=== PATIENT | male | born 1950 | race Caucasian/White ===

== ENCOUNTER 2019-10-31 14:54 | Emergency (ER) | payer OTHER, SELFPAY ==
[2019-10-31] VITALS (7 sets, daily range): BP systolic 120–165; BP diastolic 73–97; PULSE 76–112; RESP 16–18; TEMP 37.2; O2SAT 96–98; BMI 28.3
--- NOTE | 2019-10-31 15:40 | ED_ITS ---
Documented by User: EDEN Bland 11/01/19 07:03 HPI - General Adult General: Chief complaint: Abdominal Pain Stated complaint: possible gi bleed/sent by [facility] Time Seen by Provider: 10/31/19 15:31 Source: patient Mode of arrival: ambulatory Limitations: no limitations History of Present Illness: HPI narrative: Patient is a very nice 69-year-old male with a history of liver carcinoma, HTN, DM here for complaints of feeling weak, fatigued, having no energy, chronic dizziness, chronic stomach pains , and black stools. In addition patient tells me he had a syncopal episode approximately a week ago. He tells me he has a well-controlled diabetic. States he has underwent treatment for the liver carcinoma and was told last year he was in remission. Patient tells me his chronic abdominal pain has been slightly worse over the past week or so. He tells me the black stools have been present over the past year. He states last year he had a colonoscopy which revealed one polyp but was otherwise normal. He has no history of GI bleeds. He is not anticoagulated. Onset (ago): week(s) Associated symptoms: Reports nausea and syncope; Deny chest pain, dyspnea, headache(s), rash, palpitations or vomiting Review of Systems Const: Reports: change in appetite (decreased appetite ) and fatigue; Denies: fever(s), chills, body aches or change in weight Eyes: Denies: change in vision, blurry vision, photophobia or seeing flashes ENMT: Denies: odynophagia Card: Reports: lightheadedness, syncope and pre-syncope; Denies: chest pain, palpitations, irregular heart rhythm, edema or swelling of feet/ankles Resp: Denies: dyspnea, productive cough, non-productive cough, change in phlegm color, hemoptysis or chest congestion GI: Reports: abdominal pain, nausea and melena; Denies: vomiting, hematemesis, diarrhea, constipation, change in bowel habits, rectal pain, hematochezia or white/light colored stool : Denies: flank pain, difficulty urinating, dysuria, urinary frequency, urinary urgency or urinary hesitancy Musc: Denies: neck pain or back pain Skin/Breast: Denies: rash Neuro: Reports: dizziness; Denies: headache(s), numbness in extremities, weakness in extremities or sensory changes PFS ED PFSH: Social History Smoking and tobacco status: never smoked Alcohol intake: never Marital status: Single Physical Exam Const: COMMON NORMALS: no acute distress, average body habitus, patient oriented x3, no limitations, healthy appearing, alert and well nourished HENMT: COMMON NORMALS: normocephalic and atraumatic HEAD & SCALP: normocephalic and atraumatic Resp: COMMON NORMALS: normal respiratory effort and clear to auscultation bilaterally AUSCULTATION: clear to auscultation bilaterally Cardio: COMMON NORMALS: regular rate and regular rhythm RATE: regular rate RHYTHM: regular rhythm GI: COMMON NORMALS: Normal to inspection, nondistended, normoactive bowel sounds present, Soft to palpation, No hepatosplenomegaly present and no masses PALPATION: Yes Soft to palpation, Yes Tenderness to palpation present (GI) (epigastric ) Details: RUQ and Yes No hepatosplenomegaly present RECTAL EXAM: Yes heme positive stool : COMMON NORMALS: Yes no CVA tenderness BLADDER/KIDNEY EXAM: Yes no CVA tenderness Back/Pelvis: COMMON NORMALS: no CVA tenderness Extremity: COMMON NORMALS: normal to inspection, capillary refill normal, no clubbing, cyanosis or edema, no calf tenderness and no pedal edema Neuro: COMMON NORMALS: patient oriented x3 SENSORIUM/ORIENTATION: Yes alert Skin: COMMON NORMALS: no rashes or lesions noted GENERAL SKIN EXAM: no rashes or lesions noted Course Vital Signs: Vital signs: Vital Signs Temperature 98.9 F 10/31/19 14:59 Pulse Rate 104 H 10/31/19 18:23 Respiratory Rate 16 10/31/19 18:23 Blood Pressure 146/90 10/31/19 18:23 Pulse Oximetry 97 10/31/19 18:23 MDM - General Adult Lab Data: Labs: Lab Results 10/31/19 10/31/19 10/31/19 Range/Units 15:50 15:50 15:50 WBC 8.3 (4.0-10.0) 10^3/ uL RBC 5.51 H (4.1-5.3) 10^6/u L Hgb 15.5 (11.7-16.6) g/dL Hct 48.5 (42.0-52.0) % MCV 88.0 (80-94) fL MCH 28.1 (28.0-34.0) pg MCHC 32.0 (30.0-36.0) g/dL RDW 12.3 (12.1-15.1) % Plt Count 227 (130-400) 10^3/c mm MPV 10.4 (7.4-10.4) fL Neut % (Auto) 57.1 % Lymph % (Auto) 30.3 % [place] % (Auto) 10.8 % Eos % (Auto) 1.1 % Baso % (Auto) 0.5 % Neut # (Auto) 4.7 (1.8-7.7) 10^3/u L Lymph # (Auto) 2.5 (0.8-4.8) 10^3/u L [place] # (Auto) 0.9 (0.2-0.9) 10^3/u L Eos # (Auto) 0.1 (0.0-0.8) 10^3/u L Baso # (Auto) 0.0 (0.0-0.1) 10^3/u L Nucleated RBC % (a uto) 0 % Nucleated RBCs # 0.0 /100WBC PT 13.40 H (10.5-13.3) SECO NDS INR 1.00 (0.8-1.2) Sodium 134 L (136-145) mmol/L Potassium 3.8 (3.5-5.1) mmol/L Chloride 101 (98-107) mmol/L Carbon Dioxide 19 L (22-29) mmol/L Anion Gap 17.8 (5-19) BUN 12 (8-23) mg/dL Creatinine 1.2 (0.7-1.2) mg/dL GFR Calculation 60.2 L (90-130) mL/min Glucose 288 H (65-115) mg/dL Calculated Osmolal ity 285 (285-295) mOsm/k g Lactate (0.5-2.2) mmol/L Calcium 9.7 (8.5-10.5) mg/dL Total Bilirubin 0.5 (0.15-1.2) mg/dL AST 38 (0-40) U/L ALT 43 H (0-41) U/L Alkaline Phosphata se 142 H (40-130) IU/L Total Protein 8.1 (6.6-8.7) g/dL Albumin 4.6 (3.5-5.2) g/dL Globulin 3.5 (1.3-4.6) g/dL Lipase 45 (13-60) U/L Urine Color (Yellow) Urine Appearance (CLEAR) Urine pH (5-7) Ur Specific Gravit y (1.005-1.030) Urine Protein (Negative) Urine Glucose (UA) (Normal) Urine Ketones (Negative) Urine Blood (Negative) Urine Nitrate (Negative) Urine Bilirubin (NEGATIVE) Urine Urobilinogen (Negative) mg/dL Ur Leukocyte Mirna ase (Negative) 10/31/19 10/31/19 Range/Units 15:50 17:20 WBC (4.0-10.0) 10^3/ uL RBC (4.1-5.3) 10^6/u L Hgb (11.7-16.6) g/dL Hct (42.0-52.0) % MCV (80-94) fL MCH (28.0-34.0) pg MCHC (30.0-36.0) g/dL RDW (12.1-15.1) % Plt Count (130-400) 10^3/c mm MPV (7.4-10.4) fL Neut % (Auto) % Lymph % (Auto) % [place] % (Auto) % Eos % (Auto) % Baso % (Auto) % Neut # (Auto) (1.8-7.7) 10^3/u L Lymph # (Auto) (0.8-4.8) 10^3/u L [place] # (Auto) (0.2-0.9) 10^3/u L Eos # (Auto) (0.0-0.8) 10^3/u L Baso # (Auto) (0.0-0.1) 10^3/u L Nucleated RBC % (a uto) % Nucleated RBCs # /100WBC PT (10.5-13.3) SECO NDS INR (0.8-1.2) Sodium (136-145) mmol/L Potassium (3.5-5.1) mmol/L Chloride (98-107) mmol/L Carbon Dioxide (22-29) mmol/L Anion Gap (5-19) BUN (8-23) mg/dL Creatinine (0.7-1.2) mg/dL GFR Calculation (90-130) mL/min Glucose (65-115) mg/dL Calculated Osmolal ity (285-295) mOsm/k g Lactate 1.6 (0.5-2.2) mmol/L Calcium (8.5-10.5) mg/dL Total Bilirubin (0.15-1.2) mg/dL AST (0-40) U/L ALT (0-41) U/L Alkaline Phosphata se (40-130) IU/L Total Protein (6.6-8.7) g/dL Albumin (3.5-5.2) g/dL Globulin (1.3-4.6) g/dL Lipase (13-60) U/L Urine Color Yellow (Yellow) Urine Appearance Clear (CLEAR) Urine pH 7 (5-7) Ur Specific Gravit y 1.005 (1.005-1.030) Urine Protein Neg (Negative) Urine Glucose (UA) Norm (Normal) Urine Ketones Negative (Negative) Urine Blood Neg (Negative) Urine Nitrate Negative (Negative) Urine Bilirubin Neg (NEGATIVE) Urine Urobilinogen Norm (Negative) mg/dL Ur Leukocyte Mirna ase Negative (Negative) Imaging Data^: CXR: Radiologist's impression: [place] [address] XRay Report Signed Patient: Jus Hurtado Unit #: [id number] : 1950 Age/Sex: 69 / M ADM Date: 10/31/19 Loc: ER Room/Bed: Attending Dr: Ordering Provider/Ordering MD: Margot Pantoja Date of Service: 10/31/19 Procedure(s): XR chest 1V portable [id number] Accession Number(s): [id number] Report Number: [id number] PROCEDURE INFORMATION: Exam: XR Chest, 1 View Exam date and time: 10/31/2019 4:14 PM Age: 69 years old Clinical indication: Other: Weakness, fatigue; Additional info: Weakness/fatigue TECHNIQUE: Imaging protocol: XR of the chest Views: 1 view. COMPARISON: No relevant prior studies available. FINDINGS: Lungs: Unremarkable. No consolidation. Pleural space: Unremarkable. No pleural effusion. No pneumothorax. Heart/Mediastinum: Unremarkable. No cardiomegaly. Bones/joints: Unremarkable. XR/XR chest 1V portable [id number] IMPRESSION: No acute findings. Dictated By: Abdiaziz Gabriel Signed By: Abdiaziz Gabriel Signed Date/Time: 10/31/191628 DD/ 28 EKG Data^: EKG 1: Computer generated interpretation: Chest X-Ray 10/31/19 15:41 IMPRESSION: No acute findings. Abdomen/Pelvis CT 10/31/19 16:24 IMPRESSION: 1. Cirrhosis 2. Postsurgical changes in the liver, comparison with prior examinations is suggested to evaluate stability and exclude recurrence. 3. Probable focal fatty change in the right lobe of the liver. 4. Mild biliary tract dilatation in the left lobe of the liver of uncertain significance. Correlation with clinical and laboratory findings is suggested. Radiation Dose CTDIVOL = (mGy): DLP = 849.76 (mGy-cm) Discharge Plan Discharge Patient Disposition: Home, Self-Care Clinical Impression: History of liver cancer Cirrhosis of liver Qualifiers: Hepatic cirrhosis type: unspecified hepatic cirrhosis Ascites presence: without ascites Qualified Code(s): K74.60 - Unspecified cirrhosis of liver Fatigue Qualifiers: Fatigue type: unspecified Qualified Code(s): R53.83 - Other fatigue Condition: Stable Discharge Orders: Discharge Order (Routine); Ordered 10/31/19 Ordered By: Femi Guzman Referrals: Uriel Hall DO [Primary Care Provider] - Discharge Diet: Advance as tolerated Discharge Activity: Increase activity as tolerated Activity Restrictions/Additional Instructions: Follow-up with your GI doctor in the next 7 to 10 days for reevaluation. Continue taking all home medications as prescribed. Return to the ER or your medical provider if condition worsens. Please read and understand discharge instructions. If any questions, please ask. Discharge Date/Time: 10/31/19 18:34 Sign Out Sign Out Data: Patient Sign Out occurred on 10/31/19 at 17:11. Patient's care was discussed, and care was transferred from to EDEN Wheeler. Coding Level of Care Code ED Medical Anthropologist for Chg Fwd Exam Comprehensive Documented by User: EDEN Wheeler 11/01/19 01:45 HPI - General Adult General: Chief complaint: Abdominal Pain Stated complaint: possible gi bleed/[facility] Time Seen by Provider: 10/31/19 15:31 PFSH ED PFSH: Social History Smoking and tobacco status: never smoked Alcohol intake: never Marital status: Single Procedures Stool Hemoccult Procedural Steps Taken: stool placed in appropriate test area, developer placed on stool and control areas and controls appropriately positive and negative Hemoccult result: positive Additional Comments: Margot Pantoja the physicians [facility] faculty assistant who did the initial work-up the patient before handing him over to me stated she performed a digital rectal exam and stool Hemoccult test. She stated it was positive for blood. Course Vital Signs: Vital signs: Vital Signs Temperature 98.9 F 10/31/19 14:59 Pulse Rate 104 H 10/31/19 18:23 Respiratory Rate 16 10/31/19 18:23 Blood Pressure 146/90 10/31/19 18:23 Pulse Oximetry 97 10/31/19 18:23 MDM - General Adult MDM Narrative: Medical decision making narrative: Patient is a very nice 69-year-old male with a history of liver carcinoma, HTN, DM here for complaints of stomach pains and fatigue. Patient recently had an MRI in July to evaluate his hepatocellular carcinoma and no disease progression seen. Patient also had a colonoscopy a year ago with 1 polyp seen and no other acute findings. Patient also sees GI specialist. Patient says symptoms started after liver cancer treatment. Patient's stool Hemoccult test was positive. CBC was unremarkable, CMP and UA were unremarkable. Lipase is 45 and lactate was 1.6. EKG was also p erformed and showed sinus tachycardia with no ST segment elevation or depression seen. Chest x-ray showed no acute findings. CT of the abdomen showed cirrhosis and fatty liver. No acute findings. Patient was discharged and told to contact GI specialist to set up an appointment for further evaluation of symptoms. Patient understood and agreed with plan. Lab Data: Attestation: I reviewed the patient's lab results. Labs: Lab Results 10/31/19 10/31/19 10/31/19 Range/Units 15:50 15:50 15:50 WBC 8.3 (4.0-10.0) 10^3/ uL RBC 5.51 H (4.1-5.3) 10^6/u L Hgb 15.5 (11.7-16.6) g/dL Hct 48.5 (42.0-52.0) % MCV 88.0 (80-94) fL MCH 28.1 (28.0-34.0) pg MCHC 32.0 (30.0-36.0) g/dL RDW 12.3 (12.1-15.1) % Plt Count 227 (130-400) 10^3/c mm MPV 10.4 (7.4-10.4) fL Neut % (Auto) 57.1 % Lymph % (Auto) 30.3 % [place] % (Auto) 10.8 % Eos % (Auto) 1.1 % Baso % (Auto) 0.5 % Neut # (Auto) 4.7 (1.8-7.7) 10^3/u L Lymph # (Auto) 2.5 (0.8-4.8) 10^3/u L [place] # (Auto) 0.9 (0.2-0.9) 10^3/u L Eos # (Auto) 0.1 (0.0-0.8) 10^3/u L Baso # (Auto) 0.0 (0.0-0.1) 10^3/u L Nucleated RBC % (a uto) 0 % Nucleated RBCs # 0.0 /100WBC PT 13.40 H (10.5-13.3) SECO NDS INR 1.00 (0.8-1.2) Sodium 134 L (136-145) mmol/L Potassium 3.8 (3.5-5.1) mmol/L Chloride 101 (98-107) mmol/L Carbon Dioxide 19 L (22-29) mmol/L Anion Gap 17.8 (5-19) BUN 12 (8-23) mg/dL Creatinine 1.2 (0.7-1.2) mg/dL GFR Calculation 60.2 L (90-130) mL/min Glucose 288 H (65-115) mg/dL Calculated Osmolal ity 285 (285-295) mOsm/k g Lactate (0.5-2.2) mmol/L Calcium 9.7 (8.5-10.5) mg/dL Total Bilirubin 0.5 (0.15-1.2) mg/dL AST 38 (0-40) U/L ALT 43 H (0-41) U/L Alkaline Phosphata se 142 H (40-130) IU/L Total Protein 8.1 (6.6-8.7) g/dL Albumin 4.6 (3.5-5.2) g/dL Globulin 3.5 (1.3-4.6) g/dL Lipase 45 (13-60) U/L Urine Color (Yellow) Urine Appearance (CLEAR) Urine pH (5-7) Ur Specific Gravit y (1.005-1.030) Urine Protein (Negative) Urine Glucose (UA) (Normal) Urine Ketones (Negative) Urine Blood (Negative) Urine Nitrate (Negative) Urine Bilirubin (NEGATIVE) Urine Urobilinogen (Negative) mg/dL Ur Leukocyte Mirna ase (Negative) 10/31/19 10/31/19 Range/Units 15:50 17:20 WBC (4.0-10.0) 10^3/ uL RBC (4.1-5.3) 10^6/u L Hgb (11.7-16.6) g/dL Hct (42.0-52.0) % MCV (80-94) fL MCH (28.0-34.0) pg MCHC (30.0-36.0) g/dL RDW (12.1-15.1) % Plt Count (130-400) 10^3/c mm MPV (7.4-10.4) fL Neut % (Auto) % Lymph % (Auto) % [place] % (Auto) % Eos % (Auto) % Baso % (Auto) % Neut # (Auto) (1.8-7.7) 10^3/u L Lymph # (Auto) (0.8-4.8) 10^3/u L [place] # (Auto) (0.2-0.9) 10^3/u L Eos # (Auto) (0.0-0.8) 10^3/u L Baso # (Auto) (0.0-0.1) 10^3/u L Nucleated RBC % (a uto) % Nucleated RBCs # /100WBC PT (10.5-13.3) SECO NDS INR (0.8-1.2) Sodium (136-145) mmol/L Potassium (3.5-5.1) mmol/L Chloride (98-107) mmol/L Carbon Dioxide (22-29) mmol/L Anion Gap (5-19) BUN (8-23) mg/dL Creatinine (0.7-1.2) mg/dL GFR Calculation (90-130) mL/min Glucose (65-115) mg/dL Calculated Osmolal ity (285-295) mOsm/k g Lactate 1.6 (0.5-2.2) mmol/L Calcium (8.5-10.5) mg/dL Total Bilirubin (0.15-1.2) mg/dL AST (0-40) U/L ALT (0-41) U/L Alkaline Phosphata se (40-130) IU/L Total Protein (6.6-8.7) g/dL Albumin (3.5-5.2) g/dL Globulin (1.3-4.6) g/dL Lipase (13-60) U/L Urine Color Yellow (Yellow) Urine Appearance Clear (CLEAR) Urine pH 7 (5-7) Ur Specific Gravit y 1.005 (1.005-1.030) Urine Protein Neg (Negative) Urine Glucose (UA) Norm (Normal) Urine Ketones Negative (Negative) Urine Blood Neg (Negative) Urine Nitrate Negative (Negative) Urine Bilirubin Neg (NEGATIVE) Urine Urobilinogen Norm (Negative) mg/dL Ur Leukocyte Mirna ase Negative (Negative) Imaging Data^: CT Abd/Pel: Attestation: I personally reviewed and interpreted this imaging study as follows: Radiologist's impression: [address] [address] [address] Scan Report Signed Patient: Jus Hurtado Unit #: [id number] : 1950 Age/Sex: 69 / M ADM Date: 10/31/19 Loc: ER Room/Bed: Attending Dr: Ordering Provider/Ordering MD: Margot Pantoja Date of Service: 10/31/19 Procedure(s): CT abdomen pelvis w con* [id number] Accession Number(s): [id number] Report Number: [id number] PROCEDURE INFORMATION: Exam: CT Abdomen And Pelvis With Contrast Exam date and time: 10/31/2019 4:30 PM Age: 69 years old Clinical indication: Abdominal pain; Generalized; Prior surgery; Surgery date: 6+ months; Surgery type: Gb/appy; Additional info: Pain, weakness, fatigue; HX of liver CA TECHNIQUE: Imaging protocol: Computed tomography of the abdomen and pelvis with intravenous contrast. Radiation optimization: All CT scans at this facility use at least one of these dose optimization techniques: automated exposure control; mA and/or kV adjustment per patient size (includes targeted exams where dose is matched to clinical indication); or iterative reconstruction. Contrast material: OMNI 300; Contrast volume: 95 ml; Contrast route: INTRAVENOUS (IV); COMPARISON: No relevant prior studies available. RADIATION DOSE METRICS: Total DLP (mGy-cm): 849.76 FINDINGS: Liver: Right lobe of the liver has nodular contours suggestive of cirrhosis. There is mild intrahepatic biliary tract dilatation in left lobe of the liver. There is wedge-shaped geographic area of diminished attenuation in the right lobe of the liver which may represent some focal fatty change. There is also some postsurgical change and focal atrophy involving the anterior left lobe of the liver adjacent to the falciform ligament. These changes are presumably related to the patient's history of treated hepatocellular carcinoma. Comparison with prior imaging studies if available is suggested to evaluate for stability. MRI would be more sensitive in evaluating for recurrent tumor. Gallbladder and bile ducts: There has been a cholecystectomy. Pancreas: Normal. No ductal dilation. Spleen: The spleen is normal. Adrenals: The adrenal glands are normal. The adrenal glands are normal. Kidneys and ureters: The right kidney is normal. There is some focal scarring in the upper pole of the left kidney. There is no evidence of hydronephrosis. There is no evidence of renal or ureteral calcifications. Stomach and bowel: There is no evidence of colitis/diverticulitis. Appendix: Not identified Intraperitoneal space: There is no evidence of free intraperitoneal fluid. Vasculature: The aorta demonstrates mild atherosclerotic calcification. Lymph nodes: Unremarkable. No enlarged lymph nodes. Bladder: Unremarkable as visualized. Reproductive: The prostate demonstrates mild nonspecific enlargement. The seminal vesicles are normal. Bones/joints: Unremarkable. No acute fracture. Soft tissues: There is small left inguinal hernia containing fat. CT/CT abdomen pelvis w con* [id number] IMPRESSION: 1. Cirrhosis 2. Postsurgical changes in the liver, comparison with prior examinations is suggested to evaluate stability and exclude recurrence. 3. Probable focal fatty change in the right lobe of the liver. 4. Mild biliary tract dilatation in the left lobe of the liver of uncertain significance. Correlation with clinical and laboratory findings is suggested. Radiation Dose CTDIVOL = (mGy): DLP = 849.76 (mGy-cm) Dictated By: Vern Rich Signed By: Vern Rich Signed Date/Time: 10/31/191742 DD/ 41 EKG Data^: EKG 1: Attestation: I personally reviewed and interpreted this EKG as follows: EKG interpretation date: 10/31/19 Computer generated interpretation: Chest X-Ray 10/31/19 15:41 IMPRESSION: No acute findings. Abdomen/Pelvis CT 10/31/19 16:24 IMPRESSION: 1. Cirrhosis 2. Postsurgical changes in the liver, comparison with prior examinations is suggested to evaluate stability and exclude recurrence. 3. Probable focal fatty change in the right lobe of the liver. 4. Mild biliary tract dilatation in the left lobe of the liver of uncertain significance. Correlation with clinical and laboratory findings is suggested. Radiation Dose CTDIVOL = (mGy): DLP = 849.76 (mGy-cm) Sinus tachycardia, 107 bpm, no ST segment elevation or depression seen, P waves present. Discharge Plan Discharge Patient Disposition: Home, Self-Care Clinical Impression: History of liver cancer Cirrhosis of liver Qualifiers: Hepatic cirrhosis type: unspecified hepatic cirrhosis Ascites presence: without ascites Qualified Code(s): K74.60 - Unspecified cirrhosis of liver Fatigue Qualifiers: Fatigue type: unspecified Qualified Code(s): R53.83 - Other fatigue Condition: Stable Discharge Orders: Discharge Order (Routine); Ordered 10/31/19 Ordered By: Femi Guzman Referrals: Uriel Hall, DO [Primary Care Provider] - Discharge Diet: Advance as tolerated Discharge Activity: Increase activity as tolerated Activity Restrictions/Additional Instructions: Follow-up with your GI doctor in the next 7 to 10 days for reevaluation. Continue taking all home medications as prescribed. Return to the ER or your medical provider if condition worsens. Please read and understand discharge instructions. If any questions, please ask. Discharge Date/Time: 10/31/19 18:34 Sign Out Sign Out Data: Patient Sign Out occurred on 10/31/19 at 17:11. Patient's care was discussed, and care was transferred from to EDEN Wheeler. Coding Level of Care Code ED Medical Anthropologist for Chg Fwd Exam Comprehensive
--- NOTE | 2019-10-31 15:41 | ECG_ITS ---
[facility] Test Date: 2019-10-31 Pat Name: Jus Hurtado Department: Room: Gender: Male Customer Care Manager: : 1950 Requested By: Margot Pantoja Order Number: [id number] Kwaku MD: Ji Garcia M.D. Measurements Intervals [place] Rate: 107 P: 50 RI: 146 QRS: -30 QRSD: 93 T: 30 QT: 322 QTc: 431 Interpretive Statements SINUS TACHYCARDIA BORDERLINE LEFT AXIS DEVIATION [QRS AXIS < -20] ABNORMAL RHYTHM ECG No previous ECG available for comparison Electronically Signed On 10-31-2019 16:59:15 CDT by Ji Garcia M.D. [email or web address]
[2019-10-31 16:05] LABS: Basophils % 0.5 %; Eosinophils # 0.1 10^3/uL (0.0-0.8); Eosinophils % 1.1 %; Hematocrit 48.5 % (42.0-52.0); Hemoglobin 15.5 g/dL (11.7-16.6); Lymphocytes # 2.5 10^3/uL (0.8-4.8); Lymphocytes % 30.3 %; Mean Corpuscular Hemoglobin 28.1 pg (28.0-34.0); Mean Platelet Volume 10.4 fL (7.4-10.4); Monocytes # 0.9 10^3/uL (0.2-0.9); Monocytes % 10.8 %; Neutrophils # 4.7 10^3/uL (1.8-7.7); Neutrophils % 57.1 %; Nucleated Red Blood Cells % 0 %; Platelet Count 227 10^3/cmm (130-400); Red Blood Count 5.51 10^6/uL (4.1-5.3); Red Cell Distribution Width 12.3 % (12.1-15.1); White Blood Count 8.3 10^3/uL (4.0-10.0)
--- NOTE | 2019-10-31 16:24 | CTR_ITS ---
PROCEDURE INFORMATION: Exam: CT Abdomen And Pelvis With Contrast Exam date and time: 10/31/2019 4:30 PM Age: 69 years old Clinical indication: Abdominal pain; Generalized; Prior surgery; Surgery date: 6+ months; Surgery type: Gb/appy; Additional info: Pain, weakness, fatigue; HX of liver CA TECHNIQUE: Imaging protocol: Computed tomography of the abdomen and pelvis with intravenous contrast. Radiation optimization: All CT scans at this facility use at least one of these dose optimization techniques: automated exposure control; mA and/or kV adjustment per patient size (includes targeted exams where dose is matched to clinical indication); or iterative reconstruction. Contrast material: OMNI 300; Contrast volume: 95 ml; Contrast route: INTRAVENOUS (IV); COMPARISON: No relevant prior studies available. RADIATION DOSE METRICS: Total DLP (mGy-cm): 849.76 FINDINGS: Liver: Right lobe of the liver has nodular contours suggestive of cirrhosis. There is mild intrahepatic biliary tract dilatation in left lobe of the liver. There is wedge-shaped geographic area of diminished attenuation in the right lobe of the liver which may represent some focal fatty change. There is also some postsurgical change and focal atrophy involving the anterior left lobe of the liver adjacent to the falciform ligament. These changes are presumably related to the patient's history of treated hepatocellular carcinoma. Comparison with prior imaging studies if available is suggested to evaluate for stability. MRI would be more sensitive in evaluating for recurrent tumor. Gallbladder and bile ducts: There has been a cholecystectomy. Pancreas: Normal. No ductal dilation. Spleen: The spleen is normal. Adrenals: The adrenal glands are normal. The adrenal glands are normal. Kidneys and ureters: The right kidney is normal. There is some focal scarring in the upper pole of the left kidney. There is no evidence of hydronephrosis. There is no evidence of renal or ureteral calcifications. Stomach and bowel: There is no evidence of colitis/diverticulitis. Appendix: Not identified Intraperitoneal space: There is no evidence of free intraperitoneal fluid. Vasculature: The aorta demonstrates mild atherosclerotic calcification. Lymph nodes: Unremarkable. No enlarged lymph nodes. Bladder: Unremarkable as visualized. Reproductive: The prostate demonstrates mild nonspecific enlargement. The seminal vesicles are normal. Bones/joints: Unremarkable. No acute fracture. Soft tissues: There is small left inguinal hernia containing fat. CT/CT abdomen pelvis w con* [id number] IMPRESSION: 1. Cirrhosis 2. Postsurgical changes in the liver, comparison with prior examinations is suggested to evaluate stability and exclude recurrence. 3. Probable focal fatty change in the right lobe of the liver. 4. Mild biliary tract dilatation in the left lobe of the liver of uncertain significance. Correlation with clinical and laboratory findings is suggested. Radiation Dose CTDIVOL = (mGy): DLP = 849.76 (mGy-cm)
[2019-10-31 16:29] LABS: Alanine Aminotransferase 43 U/L (0-41); Albumin Level 4.6 g/dL (3.5-5.2); Alkaline Phosphatase 142 IU/L (40-130); Anion Gap 17.8 (5-19); Aspartate Amino Transferase 38 U/L (0-40); Blood Urea Nitrogen 12 mg/dL (8-23); Calcium 9.7 mg/dL (8.5-10.5); Carbon Dioxide 19 mmol/L (22-29); Chloride 101 mmol/L (98-107); Creatinine Clr Calc Pharmacy 56.4537; Globulin 3.5 g/dL (1.3-4.6); Glomerular Filtration Rate 60.2 mL/min (90-130); Glucose 288 mg/dL (65-115); Lipase 45 U/L (13-60); Osmolality Calculated 285 mOsm/kg (285-295); Potassium 3.8 mmol/L (3.5-5.1); Sodium 134 mmol/L (136-145); Total Bilirubin 0.5 mg/dL (0.15-1.2); Total Protein 8.1 g/dL (6.6-8.7)
[2019-10-31 16:30] LABS: Lactate (Lactic Acid level) 1.6 mmol/L (0.5-2.2)
[2019-10-31] MEDS: iohexol 300 mg/mL 100 mL Btl IV (17:05)
[2019-10-31 18:22] LABS: Add Urine Microscopic? NO
[2019-10-31 18:26] LABS: Bilirubin Urine Neg (NEGATIVE); Blood Urine Neg (Negative); Glucose Urine UA Norm (Normal); Ketones Urine Negative (Negative); Leukocyte Esterase Urine Negative (Negative); Nitrate Urine Negative (Negative); Protein Urine Neg (Negative); Specific Gravity, Urine 1.005 (1.005-1.030); Urine Appearance Clear (CLEAR); Urine Color Yellow (Yellow); Urobilinogen Urine Norm (Negative); pH Urine 7 (5-7)
== END 2019-10-31 18:34 | disposition home or self-care (01) ==
PROVIDERS: Emergency Medicine; Physician Assistant; Emergency Provider Physician Assistant; PCP Emergency Medicine Emergency Medical Services
DX: K74.60 Unspecified cirrhosis of liver (principal); R53.83 Other fatigue; Z85.05 Personal history of malignant neoplasm of liver
CPT/HCPCS: 12345; 36415; 71045; 74177; 80053; 81003; 82272; 83605; 83690; 85025; 85610; 93005; 99284; Q9967

== ENCOUNTER 2019-11-30 13:51 | Emergency (ER) | payer OTHER, SELFPAY ==
[2019-11-30 14:01] VITALS: BP 180/100; PULSE 111; RESP 14; TEMP 36.8; O2SAT 97; BMI 29.6
--- NOTE | 2019-11-30 14:36 | CT_ITS ---
WS: [id number] CT ABDOMEN AND PELVIS WITH CONTRAST HISTORY: RUQ pain; hx of hepatic carcinoma TECHNIQUE: Imaging performed of the abdomen and pelvis with IV contrast. Single phase imaging of the abdomen. Coronal and sagittal reformats are submitted. All CT scans at [facility] use at least one of these dose optimization techniques: automated exposure control; mA and/or kV adjustment per patient size (includes targeted exams where dose is matched to clinical indication); or iterativ e reconstruction. IV CONTRAST: Visipaque 320; 95 mL IV. Oral contrast: No DLP: 301.62 mGy.cm COMPARISON: 10/31/2019 Lower thorax: No pulmonary nodules. Heart is normal size. No hiatal hernia. Liver/biliary system: Abnormal appearance of the liver. Nodular contour with variable density through out the liver. Postsurgical changes in the LEFT lobe of the liver. There is marked heterogeneity thro ughout the liver. Along the falciform ligament and extending into the LEFT lobe of the liver is of ar ea of decreased attenuation with mild duct dilatation. Mild central bile duct dilatation slightly mor e prevalent involving the LEFT lobe. There is an area of decreased attenuation in the central RIGHT l obe which could be related to hepatic attenuation differences. Gallbladder: Prior cholecystectomy. Pancreas: Normal. Spleen: Normal. Adrenal glands: Normal. Right kidney: Normal. Left kidney: Cortical scar upper pole. No obstruction. Aorta: Mild atherosclerosis aorta with no aneurysm Lymphadenopathy: None. Free fluid: None. GI tract: No obstruction. Abdominal wall: Fat-containing umbilical hernia. Pelvis: Well-distended bladder. No ascites. Mild heterogeneity in the prostate. Bones: Unremarkable. CT/CT abdomen pelvis w con* [id number] IMPRESSION: 1. Abnormal liver. Postsurgical changes along the falciform ligament with an a angelica of decreased attenuation and associated bile duct dilatation. Prior study f rom 10/31/2019 is the only study available for comparison. Since that examination there has probably been no significant interval change. The changes in the matt er along the falciform ligament may all be postsurgical and posttreatment. Maximilian y recurrent neoplasm is not excluded and this appearance. Close continued follo w-up recommended. MRI liver with contrast would provide additional information or PET/CT imaging. 2. Cirrhosis. 3. No ascites.
--- NOTE | 2019-11-30 14:37 | W.ED.ABDPA2 ---
HPI - Abdominal Pain General: Chief Complaint: Abdominal Pain Stated Complaint: back and flank pain Time Seen by Provider: 11/30/19 14:11 Source: patient Mode of arrival: ambulatory Limitations: no limitations History of Present Illness: HPI narrative: Patient is a very nice 69-year-old male who presents to ED today with complaints of right upper quadrant abdominal pain. Patient tells me he has a history of hepatocellular carcinoma/cirrhosis and underwent chemotherapy and radiation approximately 1 year ago while living in [place]. He was told at one point his cancer was terminal and given 2 years to live. Patient tells me he is supposed to be following up with an oncologist at [facility] in [place] however they have never called to schedule an appointment. He has seen [facility] in [place] and had MRI in July with no disease progression seen.. Patient tells me he normally does not experience much pain in his abdomen. He does have chronic intermittent vomiting and intermittent abdominal swelling. He states he will sometimes experience black stools although is not complaining of this today. He has had a colonoscopy last year which showed a benign polyp. Patient seeking emergency evaluation today stating this week he began experiencing what felt like knives in his liver , back pain, and pain in his kidneys. He has not been running fevers. Associated Symptoms: Denies change in bowel habits, change in stool character, chills, coffee ground emesis, diarrhea, dysuria, fever(s), hematochezia, hematemesis, melena, nausea and vomiting (chronic mild intermittent ) Review of Systems Const: Denies: fever(s), chills, body aches or fatigue Eyes: Denies: change in vision Card: Denies: chest pain Resp: Denies: dyspnea GI: Reports: abdominal pain; Denies: nausea, vomiting (chronic mild intermittent ), hematemesis, coffee ground emesis, diarrhea, change in bowel habits, pain on defecation, change in stool character, hematochezia, melena or white/light colored stool : Denies: difficulty urinating, dysuria, urinary frequency or urinary urgency Musc: Reports: back pain; Denies: neck pain, extremity pain, extremity swelling, joint pain or joint swelling Skin/Breast: Denies: rash Neuro: Denies: headache(s), numbness in extremities, weakness in extremities or sensory changes PFS ED PFSH: Social History Smoking and tobacco status: never smoked Alcohol intake: never Marital status: Single Physical Exam Const: COMMON NORMALS: no acute distress, patient oriented x3, no limitations and alert ORIENTATION/CONSCIOUSNESS: Yes oriented to person, Yes oriented to place and Yes oriented to time HENMT: COMMON NORMALS: normocephalic and atraumatic HEAD & SCALP: normocephalic and atraumatic Resp: COMMON NORMALS: normal respiratory effort and clear to auscultation bilaterally AUSCULTATION: clear to auscultation bilaterally Cardio: COMMON NORMALS: regular rate and regular rhythm RATE: regular rate RHYTHM: regular rhythm GI: COMMON NORMALS: Normal to inspection, nondistended, normoactive bowel sounds present, Soft to palpation, No hepatosplenomegaly present and no masses PALPATION: Yes Soft to palpation, Yes Tenderness to palpation present (GI) Details: RUQ and Yes No hepatosplenomegaly present : COMMON NORMALS: Yes no CVA tenderness BLADDER/KIDNEY EXAM: Yes no CVA tenderness Back/Pelvis: COMMON NORMALS: no CVA tenderness Extremity: COMMON NORMALS: normal to inspection, no clubbing, cyanosis or edema and no pedal edema Neuro: COMMON NORMALS: patient oriented x3 SENSORIUM/ORIENTATION: Yes alert, Yes oriented to person, Yes oriented to place and Yes oriented to time Skin: COMMON NORMALS: no rashes or lesions noted GENERAL SKIN EXAM: no rashes or lesions noted Course Vital Signs: Vital signs: Vital Signs Temperature 98.3 F 11/30/19 14:01 Pulse Rate 72 11/30/19 16:56 Respiratory Rate 20 H 11/30/19 16:56 Blood Pressure 126/87 11/30/19 16:56 Pulse Oximetry 93 11/30/19 16:56 MDM - Abdominal Pain MDM Narrative: Medical decision making narrative: Patient feels much better after medications given here. Labs overall look good. CT scan with no discernible changes from last month. Early recurrent neoplasm was not excluded. I have spoken to case management who called up to [facility] oncology who told them patient did have a referral however this is in active as a referral was made back in June. [facility] at [facility] tomorrow to see if another referral can be placed. Patient feels comfortable going home at this time. Return to ED precautions given. Lab Data: Labs: Lab Results 11/30/19 11/30/19 11/30/19 Range/Units 15:00 15:00 15:00 WBC 7.7 (4.0-10.0) 10^3/ uL RBC 5.21 (4.1-5.3) 10^6/u L Hgb 14.6 (11.7-16.6) g/dL Hct 44.5 (42.0-52.0) % MCV 85.4 (80-94) fL MCH 28.0 (28.0-34.0) pg MCHC 32.8 (30.0-36.0) g/dL RDW 12.5 (12.1-15.1) % Plt Count 240 (130-400) 10^3/c mm MPV 10.5 H (7.4-10.4) fL Neut % (Auto) 59.0 % Lymph % (Auto) 29.4 % Teton % (Auto) 9.1 % Eos % (Auto) 1.7 % Baso % (Auto) 0.4 % Neut # (Auto) 4.53 (1.8-7.7) 10^3/u L Lymph # (Auto) 2.3 (0.8-4.8) 10^3/u L Teton # (Auto) 0.7 (0.2-0.9) 10^3/u L Eos # (Auto) 0.1 (0.0-0.8) 10^3/u L Baso # (Auto) 0.0 (0.0-0.1) 10^3/u L Nucleated RBC % (a uto) 0 % Nucleated RBCs # 0.0 /100WBC PT 13.70 (12.1-14.9) SECO NDS INR 1.01 (0.8-1.2) Sodium 136 (136-145) mmol/L Potassium 3.6 (3.5-5.1) mmol/L Chloride 105 (98-107) mmol/L Carbon Dioxide 21 L (22-29) mmol/L Anion Gap 13.6 (5-19) BUN 10 (8-23) mg/dL Creatinine 1.2 (0.7-1.2) mg/dL GFR Calculation 60.2 L (90-130) mL/min Glucose 186 H (65-115) mg/dL Calculated Osmolal ity 283 L (285-295) mOsm/k g Lactic Acid (0.5-2.2) mmol/L Calcium 9.3 (8.5-10.5) mg/dL Total Bilirubin 0.6 (0.15-1.2) mg/dL AST 36 (0-40) U/L ALT 32 (0-41) U/L Alkaline Phosphata se 128 (40-130) IU/L Total Protein 7.1 (6.6-8.7) g/dL Albumin 4.6 (3.5-5.2) g/dL Globulin 2.5 (1.3-4.6) g/dL Lipase 27 (13-60) U/L Urine Color (Yellow) Urine Appearance (CLEAR) Urine pH (5-7) Ur Specific Gravit y (1.005-1.030) Urine Protein (Negative) Urine Glucose (UA) (Normal) Urine Ketones (Negative) Urine Blood (Negative) Urine Nitrate (Negative) Urine Bilirubin (NEGATIVE) Urine Urobilinogen (Negative) mg/dL Ur Leukocyte Mirna ase (Negative) 11/30/19 11/30/19 Range/Units 15:00 15:55 WBC (4.0-10.0) 10^3/ uL RBC (4.1-5.3) 10^6/u L Hgb (11.7-16.6) g/dL Hct (42.0-52.0) % MCV (80-94) fL MCH (28.0-34.0) pg MCHC (30.0-36.0) g/dL RDW (12.1-15.1) % Plt Count (130-400) 10^3/c mm MPV (7.4-10.4) fL Neut % (Auto) % Lymph % (Auto) % Teton % (Auto) % Eos % (Auto) % Baso % (Auto) % Neut # (Auto) (1.8-7.7) 10^3/u L Lymph # (Auto) (0.8-4.8) 10^3/u L Teton # (Auto) (0.2-0.9) 10^3/u L Eos # (Auto) (0.0-0.8) 10^3/u L Baso # (Auto) (0.0-0.1) 10^3/u L Nucleated RBC % (a uto) % Nucleated RBCs # /100WBC PT (12.1-14.9) SECO NDS INR (0.8-1.2) Sodium (136-145) mmol/L Potassium (3.5-5.1) mmol/L Chloride (98-107) mmol/L Carbon Dioxide (22-29) mmol/L Anion Gap (5-19) BUN (8-23) mg/dL Creatinine (0.7-1.2) mg/dL GFR Calculation (90-130) mL/min Glucose (65-115) mg/dL Calculated Osmolal ity (285-295) mOsm/k g Lactic Acid 1.1 (0.5-2.2) mmol/L Calcium (8.5-10.5) mg/dL Total Bilirubin (0.15-1.2) mg/dL AST (0-40) U/L ALT (0-41) U/L Alkaline Phosphata se (40-130) IU/L Total Protein (6.6-8.7) g/dL Albumin (3.5-5.2) g/dL Globulin (1.3-4.6) g/dL Lipase (13-60) U/L Urine Color Yellow (Yellow) Urine Appearance Clear (CLEAR) Urine pH 6.5 (5-7) Ur Specific Gravit y 1.005 (1.005-1.030) Urine Protein Neg (Negative) Urine Glucose (UA) Norm (Normal) Urine Ketones Negative (Negative) Urine Blood Neg (Negative) Urine Nitrate Negative (Negative) Urine Bilirubin Neg (NEGATIVE) Urine Urobilinogen Neg (Negative) mg/dL Ur Leukocyte Mirna ase Negative (Negative) Imaging Data ^: CT Abd/Pel: Radiologist's impression: [address] [address] [address] Scan Report Signed Patient: Jus Hurtado Unit #: [id number] : 1950 Age/Sex: 69 / M ADM Date: 11/30/19 Loc: ER Room/Bed: Attending Dr: Ordering Provider/Ordering MD: Margot Pantoja Date of Service: 11/30/19 Procedure(s): CT abdomen pelvis w con* [id number] Accession Number(s): [id number] Report Number: [id number] WS: [id number] CT ABDOMEN AND PELVIS WITH CONTRAST HISTORY: RUQ pain; hx of hepatic carcinoma TECHNIQUE: Imaging performed of the abdomen and pelvis with IV contrast. Single phase imaging of the abdomen. Coronal and sagittal reformats are submitted. All CT scans at [facility] use at least one of these dose optimization techniques: automated exposure control; mA and/or kV adjustment per patient size (includes targeted exams where dose is matched to clinical indication); or iterative reconstruction. IV CONTRAST: Visipaque 320; 95 mL IV. Oral contrast: No DLP: 301.62 mGy.cm COMPARISON: 10/31/2019 Lower thorax: No pulmonary nodules. Heart is normal size. No hiatal hernia. Liver/biliary system: Abnormal appearance of the liver. Nodular contour with variable density throughout the liver. Postsurgical changes in the LEFT lobe of the liver. There is marked heterogeneity throughout the liver. Along the falciform ligament and extending into the LEFT lobe of the liver is of area of decreased attenuation with mild duct dilatation. Mild central bile duct dilatation slightly more prevalent involving the LEFT lobe. There is an area of decreased attenuation in the central RIGHT lobe which could be related to hepatic attenuation differences. Gallbladder: Prior cholecystectomy. Pancreas: Normal. Spleen: Normal. Adrenal glands: Normal. Right kidney: Normal. Left kidney: Cortical scar upper pole. No obstruction. Aorta: Mild atherosclerosis aorta with no aneurysm Lymphadenopathy: None. Free fluid: None. GI tract: No obstruction. Abdominal wall: Fat-containing umbilical hernia. Pelvis: Well-distended bladder. No ascites. Mild heterogeneity in the prostate. Bones: Unremarkable. CT/CT abdomen pelvis w con* [id number] IMPRESSION: 1. Abnormal liver. Postsurgical changes along the falciform ligament with an area of decreased attenuation and associated bile duct dilatation. Prior study from 10/31/2019 is the only study available for comparison. Since that examination there has probably been no significant interval change. The changes in the liver along the falciform ligament may all be postsurgical and posttreatment. Early recurrent neoplasm is not excluded and this appearance. Close continued follow- up recommended. MRI liver with contrast would provide additional information or PET/CT imaging. 2. Cirrhosis. 3. No ascites. Dictated By: Aury Stallings DO Signed By: Aury Stallings DO Signed Date/Time: 11/30/19 1606 DD/ 1557 Discharge Plan Discharge Patient Disposition: Home Clinical Impression: History of hepatocellular carcinoma Condition: Stable Prescriptions: New Zofran 4 mg tablet 4 mg PO Q6H PRN (Reason: nausea and vomiting) Qty: 14 RF: 0 hydrocodone-ibuprofen 7.5-200 mg tablet 1 tab PO Q6H PRN (Reason: pain) Qty: 15 RF: 0 No Action insulin glargine 100 unit/mL Solution 40 unit SUBCUT QAM RF: 0 cetirizine 10 mg Tablet 10 mg PO DAILY RF: 0 metoprolol tartrate 100 mg Tablet 50 mg PO BID RF: 0 tamsulosin 0.4 mg capsule 0.4 mg PO DAILY RF: 0 omeprazole 20 mg Capsule,Delayed Release(Dr/Ec) 20 mg PO DAILY RF: 0 losartan 100 mg Tablet 100 mg PO DAILY RF: 0 fluticasone propionate 50 mcg/actuation [place],Suspension 2 spray INTRANASAL DAILY RF: 0 metformin 1,000 mg Tablet Extended Release 24hr 1,000 mg PO DAILY RF: 0 cholecalciferol (vitamin D3) 25 mcg (1,000 unit) Tablet 25 mcg PO DAILY RF: 0 Discharge Orders: Discharge Order (Routine); Ordered 11/30/19 Ordered By: Margot Pantoja Referrals: Uriel Hall DO [Primary Care Provider] - Activity Restrictions/Additional Instructions: As discussed our embedded case manager has contacted [facility] who stated you did have a referral in June however this referral is now inactive as it is now November. Please contact the [place] so they may place another referral. As discussed please contact your GI specialist at [facility] so they can follow-up with you as well. You can return to our emergency department for worsening pain, uncontrollable vomiting, severe diarrhea, bloody stools, fevers, or any other concerns you may have. Fill RX at [facility] as I have called and they have in stock the hydrocodone with ibuprofen instead of tylenol. Discharge Date/Time: 11/30/19 16:58 Coding Level of Care Code ED Welding Machine Operator Resistance for Chg Fwd Exam Comprehensive
[2019-11-30 15:02] VITALS: BP 166/99; PULSE 88; RESP 18; O2SAT 94
[2019-11-30 15:05] VITALS: RESP 17; O2SAT 96
[2019-11-30] MEDS: ondansetron 2 mg/ML SDV 2 mL 4 MG IVP (15:05)
[2019-11-30] MEDS: morphine 4 mg/mL SDV 1 mL IVP (15:05)
[2019-11-30 15:20] LABS: Basophils % 0.4 %; Eosinophils # 0.1 10^3/uL (0.0-0.8); Eosinophils % 1.7 %; Hematocrit 44.5 % (42.0-52.0); Hemoglobin 14.6 g/dL (11.7-16.6); Lymphocytes # 2.3 10^3/uL (0.8-4.8); Lymphocytes % 29.4 %; Mean Corpuscular HGB Conc 32.8 g/dL (30.0-36.0); Mean Corpuscular Volume 85.4 fL (80-94); Mean Platelet Volume 10.5 fL (7.4-10.4); Monocytes # 0.7 10^3/uL (0.2-0.9); Monocytes % 9.1 %; Neutrophils # 4.53 10^3/uL (1.8-7.7); Nucleated Red Blood Cells % 0 %; Platelet Count 240 10^3/cmm (130-400); Red Blood Count 5.21 10^6/uL (4.1-5.3); Red Cell Distribution Width 12.5 % (12.1-15.1); White Blood Count 7.7 10^3/uL (4.0-10.0)
[2019-11-30 15:31] LABS: INR 1.01 (0.8-1.2)
[2019-11-30 15:36] LABS: Lactic Sepsis W/Reflex 1.1 mmol/L (0.5-2.2)
[2019-11-30 15:37] LABS: Alanine Aminotransferase 32 U/L (0-41); Albumin Level 4.6 g/dL (3.5-5.2); Alkaline Phosphatase 128 IU/L (40-130); Anion Gap 13.6 (5-19); Aspartate Amino Transferase 36 U/L (0-40); Blood Urea Nitrogen 10 mg/dL (8-23); Calcium 9.3 mg/dL (8.5-10.5); Carbon Dioxide 21 mmol/L (22-29); Chloride 105 mmol/L (98-107); Globulin 2.5 g/dL (1.3-4.6); Glomerular Filtration Rate 60.2 mL/min (90-130); Glucose 186 mg/dL (65-115); Lipase 27 U/L (13-60); Osmolality Calculated 283 mOsm/kg (285-295); Potassium 3.6 mmol/L (3.5-5.1); Sodium 136 mmol/L (136-145); Total Bilirubin 0.6 mg/dL (0.15-1.2); Total Protein 7.1 g/dL (6.6-8.7)
--- NOTE | 2019-11-30 15:37 | PC.NURSE ---
Pt to CT
[2019-11-30] MEDS: iodixanol 320 mg/mL 100mL Btl IV (15:45)
[2019-11-30 16:01] VITALS: BP 118/80; PULSE 79; RESP 17; O2SAT 95
[2019-11-30 16:12] LABS: Add Urine Microscopic? NO
[2019-11-30 16:34] LABS: Bilirubin Urine Neg (NEGATIVE); Blood Urine Neg (Negative); Glucose Urine UA Norm (Normal); Ketones Urine Negative (Negative); Leukocyte Esterase Urine Negative (Negative); Nitrate Urine Negative (Negative); Protein Urine Neg (Negative); Specific Gravity, Urine 1.005 (1.005-1.030); Urine Appearance Clear (CLEAR); Urine Color Yellow (Yellow); Urobilinogen Urine Neg (Negative); pH Urine 6.5 (5-7)
[2019-11-30 16:56] VITALS: BP 126/87; PULSE 72; RESP 20; O2SAT 93
--- NOTE | 2019-12-05 14:51 | DCPLANNER ---
Addendum entered by Adelia Hoang 12/06/19 12:12: regional manager called and left another voicemail for someone to call manager case back. Original Note: late entry for 11.30.19- regional manager was asked to see if patient had a referral at [facility], manager case called the clinic at [phone], was told that I needed to speak with Vernell, manager case left a voicemail for Vernell to return case planner phone call. regional manager called the clinic back, told clinic that Vernell did not answer phone asked if someone else could tell manager case anything about referral for patient. regional manager was told that patient did have a referral placed in June but that the referral was no longer any good, was told that manager case would need to speak with Vernell to find out what was going on with the referral. regional manager informed ED physician of this. late entry for 12.01.19 - called Vernell again, did not answer phone, left another voicemail for Vernell to return case planner phone call. 12.05.19 - regional manager called [facility], asked to speak with Vernell, was told that she was in another clinic, manager case stated that manager case had been trying to reach Vernell since last week and she had not returned case planner phone call, manager case was put thru to the facilities maintenance supervisor, had to leave a voicemail for the facilities maintenance supervisor to return case planner phone call.
--- NOTE | 2019-12-06 15:08 | DCPLANNER ---
Vernell from [facility] called outpatient case manager about patient. manager social responsibility was told that a new referral has been placed with the clinic and [facility]. Patients information is in review, and a follow up appointment will be scheduled and clinic will call patient with appointment information.
== END 2019-11-30 16:58 | disposition home or self-care (01) ==
PROVIDERS: Emergency Provider Physician Assistant; PCP Emergency Medicine Emergency Medical Services
DX: R10.9 Unspecified abdominal pain (principal); Z79.4 Long term (current) use of insulin; Z85.05 Personal history of malignant neoplasm of liver
CPT/HCPCS: 12345; 74177; 80053; 81003; 83605; 83690; 85025; 85610; 96374; 96375; 99283; J2270; J2405; Q9967

== ENCOUNTER 2019-12-09 17:13 | Emergency (ER) | payer OTHER, SELFPAY ==
[2019-12-09 17:20] VITALS: BMI 29.6
[2019-12-09 17:25] VITALS: BP 142/77; PULSE 84; RESP 18; TEMP 36.6; O2SAT 96
--- NOTE | 2019-12-09 17:25 | ED_ITS ---
HPI - Abdominal Pain General: Chief Complaint: Abdominal Pain Stated Complaint: ABD PAIN; HX OF LIVER CA Time Seen by Provider: 12/09/19 17:25 Source: patient Mode of arrival: ambulatory Limitations: no limitations History of Present Illness: HPI narrative: Patient comes in for exacerbation of his right upper quadrant pain due to his liver cancer. Patient has similar episode about 1 week ago and was given hydrocodone with ibuprofen and is out of the medication. Patient denies any significant change in his symptoms. Patient reports that he seems to do well then every now and again he just has these flares where he gets sudden sharp pains in his right upper quadrant. Patient denies any fever or changes in stool. Review of Systems General: Reports: 10 or more systems reviewed and unremarkable except in HPI and below GI: Reports: abdominal pain (RUQ pain) PFS ED PFSH: Social History Smoking and tobacco status: never smoked Alcohol intake: never Marital status: Single Physical Exam Const: COMMON NORMALS: no acute distress and patient oriented x3 GENERAL APPEARANCE: cooperative HENMT: COMMON NORMALS: normocephalic and Normal external nose present HEAD & SCALP: normal to inspection and normocephalic NOSE: Normal external nose present MOUTH: Normal oral and palatal mucosa present THROAT: posterior oropharynx normal Eye: GENERAL EYE: appearance normal, both eyes and all related structures Neck/C-Spine: COMMON NORMALS: full ROM Chest: COMMONS NORMALS: normal inspection of the chest Resp: COMMON NORMALS: normal respiratory effort EFFORT & INSPECTION: Yes able to speak in complete sentences Cardio: COMMON NORMALS: regular rate and regular rhythm RATE: regular rate RHYTHM: regular rhythm GI: COMMON NORMALS: Soft to palpation INSPECTION: Yes normal to inspection AUSCULTATION: Yes normoactive bowel sounds PALPATION: Yes Soft to palpation and Yes Tenderness to palpation present (GI) Details: RUQ Back/Pelvis: COMMON NORMALS: thoracic and lumbar spine normal to inspection Extremity: COMMON NORMALS: normal to inspection Neuro: COMMON NORMALS: patient oriented x3 and moves all extremities Psych: COMMON NORMALS: mental status grossly normal and cooperative Skin: COMMON NORMALS: no rashes or lesions noted GENERAL SKIN EXAM: no rashes or lesions noted Course Vital Signs: Vital signs: Vital Signs Temperature 97.9 F 12/09/19 17:25 Pulse Rate 84 12/09/19 17:25 Respiratory Rate 18 12/09/19 17:25 Blood Pressure 142/77 12/09/19 17:25 Pulse Oximetry 96 12/09/19 17:25 MDM - Abdominal Pain MDM Narrative: Medical decision making narrative: Patient comes in today with complaints of cancer related hepatocellular pain. Patient states that he gets his pain at times and has run out of medications for pain he was prescribed 1 week ago in the ER. Exam notes abdomen soft with some mild tenderness in the right upper quadrant on palpation. Patient had been given fentanyl in route to the ER. Vital signs are normal. Differential diagnosis includes but not limited to peptic ulcer disease, pancreatitis, cancer related pain. Reviewed last week's CT scan which showed no significant abnormality from prior ones 1 month ago. Opted not to repeat the CT scan. Laboratory values were unchanged. Patient's pain was controlled with the fentanyl. We re-prescribe patient the hydrocodone that he was given last week recommending follow-up with primary care also placed a case management request for pain management referral. Patient reports understanding agreed to plan. Lab Data: Labs: Lab Results 12/09/19 12/09/19 12/09/19 Range/Units 17:45 17:45 17:45 WBC 9.9 (4.0-10.0) 10^3/ uL RBC 4.93 (4.1-5.3) 10^6/u L Hgb 14.2 (11.7-16.6) g/dL Hct 43.4 (42.0-52.0) % MCV 88.0 (80-94) fL MCH 28.8 (28.0-34.0) pg MCHC 32.7 (30.0-36.0) g/dL RDW 13.0 (12.1-15.1) % Plt Count 224 (130-400) 10^3/c mm MPV 10.4 (7.4-10.4) fL Neut % (Auto) 78.6 % Lymph % (Auto) 12.6 % [place] % (Auto) 7.4 % Eos % (Auto) 0.9 % Baso % (Auto) 0.1 % Neut # (Auto) 7.77 H (1.8-7.7) 10^3/u L Lymph # (Auto) 1.2 (0.8-4.8) 10^3/u L [place] # (Auto) 0.7 (0.2-0.9) 10^3/u L Eos # (Auto) 0.1 (0.0-0.8) 10^3/u L Baso # (Auto) 0.0 (0.0-0.1) 10^3/u L Nucleated RBC % (a uto) 0 % Nucleated RBCs # 0.0 /100WBC APTT 28.4 (23.9-36.7) SECO NDS Sodium 136 (136-145) mmol/L Potassium 3.9 (3.5-5.1) mmol/L Chloride 105 (98-107) mmol/L Carbon Dioxide 20 L (22-29) mmol/L Anion Gap 14.9 (5-19) BUN 10 (8-23) mg/dL Creatinine 1.1 (0.7-1.2) mg/dL GFR Calculation 66.6 L (90-130) mL/min Glucose 268 H (65-115) mg/dL Calculated Osmolal ity 287 (285-295) mOsm/k g Calcium 8.6 (8.5-10.5) mg/dL Total Bilirubin 1.0 (0.15-1.2) mg/dL AST 68 H (0-40) U/L ALT 40 (0-41) U/L Alkaline Phosphata se 112 (40-130) IU/L Total Protein 7.2 (6.6-8.7) g/dL Albumin 4.2 (3.5-5.2) g/dL Globulin 3.0 (1.3-4.6) g/dL Lipase 32 (13-60) U/L Discharge Plan Discharge Patient Disposition: Home Clinical Impression: Cancer related pain, Cancer, hepatocellular Condition: Stable Prescriptions: Continued hydrocodone-ibuprofen 7.5-200 mg tablet 1 tab PO Q6H PRN (Reason: pain) Qty: 15 RF: 0 No Action insulin glargine 100 unit/mL Solution 40 unit SUBCUT QAM RF: 0 cetirizine 10 mg Tablet 10 mg PO DAILY RF: 0 metoprolol tartrate 100 mg Tablet 50 mg PO BID RF: 0 tamsulosin 0.4 mg capsule 0.4 mg PO DAILY RF: 0 omeprazole 20 mg Capsule,Delayed Release(Dr/Ec) 20 mg PO DAILY RF: 0 losartan 100 mg Tablet 100 mg PO DAILY RF: 0 fluticasone propionate 50 mcg/actuation [place],Suspension 2 spray INTRANASAL DAILY RF: 0 metformin 1,000 mg Tablet Extended Release 24hr 1,000 mg PO DAILY RF: 0 cholecalciferol (vitamin D3) 25 mcg (1,000 unit) Tablet 25 mcg PO DAILY RF: 0 Zofran 4 mg tablet 4 mg PO Q6H PRN (Reason: nausea and vomiting) Qty: 14 RF: 0 Discharge Orders: Discharge Order (Routine); Ordered 12/09/19 Ordered By: Travon Valdivia Referrals: Uriel Hall DO [Primary Care Provider] - Discharge Diet: Usual diet Discharge Activity: Increase activity as tolerated Activity Restrictions/Additional Instructions: Home and rest. Activity as tolerated. I am going to contact case management to have you set up for pain management program. [facility] Return to the emergency department for new concerns. Coding Level of Care Code ED Practice Support Specialist for Aj Geronimo Exam Comprehensive
--- NOTE | 2019-12-09 17:52 | PC.NURSE ---
PT STATES THAT HE IS UNABLE TO GIVE URINE SPECIMEN AT THIS TIME. URINAL AT BEDSIDE WITH INSTRUCTION THAT UA IS NEEDED ADARSH PT VERBALIZED UNDERSTANDING.
[2019-12-09 17:54] LABS: Basophils % 0.1 %; Eosinophils # 0.1 10^3/uL (0.0-0.8); Eosinophils % 0.9 %; Hematocrit 43.4 % (42.0-52.0); Hemoglobin 14.2 g/dL (11.7-16.6); Lymphocytes # 1.2 10^3/uL (0.8-4.8); Lymphocytes % 12.6 %; Mean Corpuscular HGB Conc 32.7 g/dL (30.0-36.0); Mean Corpuscular Hemoglobin 28.8 pg (28.0-34.0); Mean Platelet Volume 10.4 fL (7.4-10.4); Monocytes # 0.7 10^3/uL (0.2-0.9); Monocytes % 7.4 %; Neutrophils # 7.77 10^3/uL (1.8-7.7); Neutrophils % 78.6 %; Nucleated Red Blood Cells % 0 %; Platelet Count 224 10^3/cmm (130-400); Red Blood Count 4.93 10^6/uL (4.1-5.3); White Blood Count 9.9 10^3/uL (4.0-10.0)
[2019-12-09 18:15] LABS: Alanine Aminotransferase 40 U/L (0-41); Albumin Level 4.2 g/dL (3.5-5.2); Alkaline Phosphatase 112 IU/L (40-130); Anion Gap 14.9 (5-19); Aspartate Amino Transferase 68 U/L (0-40); Blood Urea Nitrogen 10 mg/dL (8-23); Calcium 8.6 mg/dL (8.5-10.5); Carbon Dioxide 20 mmol/L (22-29); Chloride 105 mmol/L (98-107); Creatinine Clr Calc Pharmacy 62.9051; Glomerular Filtration Rate 66.6 mL/min (90-130); Glucose 268 mg/dL (65-115); Lipase 32 U/L (13-60); Osmolality Calculated 287 mOsm/kg (285-295); Potassium 3.9 mmol/L (3.5-5.1); Sodium 136 mmol/L (136-145); Total Protein 7.2 g/dL (6.6-8.7)
[2019-12-09 18:25] LABS: Partial Thromboplastin Time 28.4 SECONDS (23.9-36.7)
[2019-12-09 18:41] LABS: INR 1.08 (0.8-1.2)
[2019-12-09 18:57] VITALS: RESP 16; O2SAT 96
[2019-12-09] MEDS: fentaNYL 50 mcg/mL INJ 2mL IVP (18:57)
[2019-12-09] MEDS: ondansetron 2 mg/ML SDV 2 mL 4 MG IVP (18:57)
[2019-12-09 19:00] VITALS: BP 119/67; PULSE 73; RESP 16; O2SAT 96
[2019-12-09 19:22] VITALS: RESP 14; O2SAT 94
[2019-12-09] MEDS: morphine 4 mg/mL SDV 1 mL IVP (19:22)
[2019-12-09 19:39] VITALS: PULSE 79; RESP 16; O2SAT 95
--- NOTE | 2019-12-11 12:19 | DCPLANNER ---
health care marketing manager had message to schedule a follow up appointment for patient with pain management. health care marketing manager spoke with patient, and explained to patient that sample case porter cannot make referrals to pain management. Referrals to pain management will have to come from the patients primary care physician. Patient stated that he understood, and would speak with his primary care physician.
== END 2019-12-09 19:41 | disposition home or self-care (01) ==
PROVIDERS: Emergency Provider Nurse Practitioner Family; PCP Emergency Medicine Emergency Medical Services
DX: R10.9 Unspecified abdominal pain (principal); G89.3 Neoplasm related pain (acute) (chronic); C22.8 Malignant neoplasm of liver, primary, unspecified as to type; Z79.4 Long term (current) use of insulin
CPT/HCPCS: 12345; 80053; 83690; 85025; 85610; 85730; 96374; 96375; 99282; 99283; J2270; J2405; J3010